=== PATIENT | male | born 1990 | race Hispanic/Latino ===

== ENCOUNTER 2023-05-07 16:46 | Emergency (ER) | payer OTHER ==
[~2023-05-07] VITALS: Ht 182.9 cm; Wt 131.5 kg
[2023-05-07] MEDS ORDERED: 0.9%NACL 1000ML 1,000 ML IV ONE (17:00)
[2023-05-07 17:17] LABS: BASOPHILS % (AUTO) 0.6 % (0.0-5.0); EOSINOPHILS % (AUTO) 1.1 % (0.0-8.0); HEMATOCRIT 47.2 % (42-54); LYMPHOCYTES % (AUTO) 17.6 % (21.0-51.0); MEAN CORPUSCULAR HEMOGLOBIN 31.3 pg (27.0-33.0); MEAN CORPUSCULAR HGB CONC 35.2 g/dL (32.0-36.0); MEAN CORPUSCULAR VOLUME 89.1 fL (79-99); MONOCYTES % (AUTO) 7.6 % (3.0-13.0); NEUTROPHILS % (AUTO) 72.6 % (40.0-77.0); PLATELET COUNT (AUTO) 241 K/uL (130-400); RED CELL DISTRIBUTION WIDTH 12.5 % (11.0-15.5); WHITE BLOOD COUNT (AUTO) 9.8 K/uL (4.8-10.8)
[2023-05-07 17:38] LABS: CREATININE 2.1 mg/dL (0.5-1.5); POTASSIUM 3.6 mmol/L (3.5-5.1)
[2023-05-07 17:53] LABS: ALBUMIN 5.3 g/dL (3.5-5.0)
[2023-05-07 18:08] VITALS: BP 123/78
== END 2023-05-07 18:17 | disposition home or self-care (01) ==
LOC: EDH 16:46
DX: R69 Illness, unspecified (principal); R53.1 Weakness; M79.10 Myalgia, unspecified site; R61 Generalized hyperhidrosis
CPT/HCPCS: 36415; 80053; 82550; 85025